=== PATIENT | female | born 1975 | race Caucasian/White ===

== ENCOUNTER 2018-04-10 10:21 | Outpatient (CLI) | payer OTHER, MEDICAID, SELFPAY ==
[2018-04-10 11:31] LABS: Anion Gap 9.2 mmol/L (3-11); BUN 14 mg/dL (7-18); CO2 28.8 mmol/L (21.0-32.0); CREATININE 0.73 mg/dL (0.55-1.02); Calcium 9.2 mg/dL (8.5-10.1); Chloride 103 mmol/L (98-107); FREE T4 1.48 ng/dL (0.76-1.46); Glucose 82 mg/dL (70-100); Potassium 4.1 mmol/L (3.5-5.1); Sodium 141 mmol/L (136-145); TSH 2.22 uIU/mL (0.358-3.74)
[2018-04-10 12:08] LABS: Cholesterol 251 mg/dL (50-200); HDL Cholesterol 46 mg/dL (40-60); LDL CHOLESTEROL 168 mg/dL (<100); Triglyceride 173 mg/dL (30-150); Vitamin B12 259 pg/mL (193-986)
[2018-04-12 05:24] LABS: Vitamin D 25 Total 11.4 ng/ml (30-100)
== END 2018-04-10 10:41 ==
PROVIDERS: PCP Nurse Practitioner Family; Visit Provider Nurse Practitioner Family
DX: E78.5 Hyperlipidemia, unspecified (principal); Z98.84 Bariatric surgery status
CPT/HCPCS: 36415; 80048; 80061; 82306; 83721; 82607; 84439; 84443

== ENCOUNTER 2018-04-10 14:09 | Outpatient (CLI) | payer OTHER, MEDICAID, SELFPAY ==
--- NOTE | 2018-04-10 10:56 | DI.RAD_ITS ---
SYMPTOMS/DIAGNOSIS: WORSENING LOW BACK PAIN, MORE LEFT SIDED LUMBAR SPINE: AP, lateral and bilateral oblique views. There are five lumbar-type vertebral bodies. No spondylolysis or spondylolisthesis is identified. The disc heights are well maintained. There are osteophytes seen at the endplates at the L3-L4 and L4-L5 levels. Degenerative changes of the facets are seen in the lower lumbar spine. No acute fractures or subluxations are appreciated. IMPRESSION: Mild degenerative changes in the lumbar spine.
== END 2018-04-10 14:29 ==
PROVIDERS: PCP Nurse Practitioner Family; Visit Provider Nurse Practitioner Family
DX: M54.5 Low back pain (principal); M25.78 Osteophyte, vertebrae; M47.26 Other spondylosis with radiculopathy, lumbar region
CPT/HCPCS: 72110

== ENCOUNTER 2018-08-02 00:30 | Outpatient (CLI) | payer OTHER, SELFPAY ==
--- NOTE | 2018-08-02 13:00 | DI.MAMMO_ITS ---
SYMPTOMS/DIAGNOSIS: BREAST CANCER SCREENING MAMMOGRAMS: Mammograms were interpreted according to the usual protocol including computer analysis with CAD system, tomosynthesis and C view imaging. This is a baseline examination. Scattered fibronodular densities are present throughout both breasts. The skin and axillae are unremarkable. IMPRESSION: No evidence for malignancy. Yearly mammography is recommended. Category 1. Breast density B. MQSA ASSESSMENT OF FINDINGS: Negative. Category 1. Patient will receive a letter notifying them of these results. BI-RADS category B. There are scattered areas of fibroglandular density.
== END 2018-08-02 00:50 ==
PROVIDERS: PCP Nurse Practitioner Family; Visit Provider Nurse Practitioner Family
DX: Z12.31 Encounter for screening mammogram for malignant neoplasm of breast (principal)
CPT/HCPCS: 77063; 77067

== ENCOUNTER 2018-09-05 13:56 | Outpatient (CLI) | payer OTHER, SELFPAY ==
[2018-09-05 15:55] LABS: Ferritin 23 ng/mL (8-388)
== END 2018-09-05 14:16 ==
PROVIDERS: PCP Nurse Practitioner Family; Visit Provider Nurse Practitioner
DX: M25.50 Pain in unspecified joint (principal)
CPT/HCPCS: 36415; 82728

== ENCOUNTER 2018-12-31 13:45 | Outpatient (CLI) | payer OTHER, SELFPAY ==
[2018-12-31 14:55] LABS: Hemoglobin A1C 5.7 % (4.5-6.2)
[2018-12-31 15:14] LABS: ALT 28 U/L (12-78); AST 16 U/L (15-37); Albumin 4.2 g/dL (3.4-5.0); Alkaline Phosphatase 75 U/L (46-116); Anion Gap 8.7 mmol/L (3-11); BUN 18 mg/dL (7-18); Bilirubin, Total 0.8 mg/dL (0.2-1.0); CO2 29.3 mmol/L (21.0-32.0); CREATININE 0.78 mg/dL (0.55-1.02); Calcium 9.2 mg/dL (8.5-10.1); Calculated LDL 91 mg/dL; Chloride 102 mmol/L (98-107); Cholesterol 167 mg/dL (50-200); Glucose 86 mg/dL (70-100); HDL Cholesterol 56 mg/dL (40-60); Sodium 140 mmol/L (136-145); TSH 1.02 uIU/mL (0.36-3.74); Total Protein 7.1 g/dL (6.4-8.2); Triglyceride 104 mg/dL (30-150)
[2018-12-31 15:19] LABS: Vitamin D 25 Total 19.2 ng/ml (30-100)
[2018-12-31 15:55] LABS: FREE T4 1.53 ng/dL (0.76-1.46)
== END 2018-12-31 14:05 ==
PROVIDERS: PCP Nurse Practitioner Family; Visit Provider Nurse Practitioner Family
DX: E78.5 Hyperlipidemia, unspecified (principal); E55.9 Vitamin D deficiency, unspecified; K76.0 Fatty (change of) liver, not elsewhere classified; E66.9 Obesity, unspecified
CPT/HCPCS: 80053; 80061; 82306; 83721; 83036; 84439; 84443

== ENCOUNTER 2021-08-18 02:27 | Outpatient (CLI) | payer OTHER, SELFPAY ==
[2021-08-18 16:31] LABS: Hemoglobin A1C 5.8 % (<5.7)
[2021-08-18 16:44] LABS: ALT 44 U/L (14-59); AST 28 U/L (15-37); Alkaline Phosphatase 76 U/L (46-116); Anion Gap 8.6 mmol/L (3-11); BUN 10 mg/dL (7-18); Bilirubin, Total 0.9 mg/dL (0.2-1.0); CO2 27.4 mmol/L (21.0-32.0); CREATININE 0.7 mg/dL (0.55-1.02); Calcium 8.8 mg/dL (8.5-10.1); Calculated LDL 147 mg/dL (<100); Chloride 102 mmol/L (98-107); Cholesterol 221 mg/dL (<200); Glucose 88 mg/dL (74-106); HDL Cholesterol 49 mg/dL (40-60); Potassium 3.8 mmol/L (3.5-5.1); Sodium 138 mmol/L (136-145); TSH 1.54 uIU/mL (0.36-3.74); Total Protein 6.8 g/dL (6.4-8.2); Triglyceride 129 mg/dL (<150)
[2021-08-18 17:02] LABS: FREE T4 1.41 ng/dL (0.76-1.46)
== END 2021-08-18 02:28 | disposition home or self-care (01) ==
LOC: LBO 02:27
PROVIDERS: PCP Nurse Practitioner Family; Visit Provider Nurse Practitioner Family
DX: E78.5 Hyperlipidemia, unspecified (principal); R73.03 Prediabetes; K76.0 Fatty (change of) liver, not elsewhere classified
CPT/HCPCS: 36415; 80053; 80061; 83036; 84439; 84443